=== PATIENT | female | born 1990 | race Caucasian/White ===

== ENCOUNTER 2019-02-07 21:42 | Emergency (ER) | payer OTHER ==
[2019-02-07 22:17] VITALS: BP 146/83
--- NOTE | 2019-02-07 22:20 | ED Physician Documentation ---
Rectal Pain - HISTORIAN Historian: patient - HPI Stated Complaint: rectal pain Chief Complaint: Rectal Pain (Hemorrhoid) Additional Information: Patient is a 28-year-old female who presents to the ER with c/o hemorrhoids. She is 36.5 weeks gestation (Grav 2, Para 1). She is a high risk with a history of Graves and Epilepsy. She has weekly appointments. She has edema to lower extremities and is a little hypertensive. She states that her OB is aware of her swelling. Explained sx's to monitor for (preeclampsia) such as; shortness of breath, chest pain, headache, blurred vision, increasing discomfort seek immediate treatment. There is positive movement. Patient only complaint this evening is hemorrhoidal discomfort. Onset: days ago (A couple of days ago) Timing: gradual onset Context: hemorrhoids- just stopped Severity: moderate - Associated Symptoms Last Bowel Movement: 02/07/19 Description of Stools: denies: dark stools, black Abdominal Pain: none Emesis Description: denies: blood, coffee grounds Description of Rectal Bleed: rectal pain Other Related Symptoms: denies: nausea, vomiting, dizziness, light-headedness - ROS CONST: no problems SKIN/LYMPH: leg swelling, ankle swelling CVS/RESP: none GI/: denies: rectal intercourse, problems urinating EYES/ENT: denies: problems with vision MS: none NEURO/PSYCH: denies: headache, lost feeling - PAST HX Past History: hemorrhoids. denies: GI bleeding Other History: other (graves, epilepsy) Surgeries/Procedures: Immunizations: UTD Allergies/Adverse Reactions: Allergies Allergy/AdvReac Type Severity Reaction Status Date / Time acetaminophen [From Vicodin] Allergy Verified 02/07/19 22:03 hydrocodone bitartrate Allergy Verified 02/07/19 22:03 [From Vicodin] sulfamethoxazole Allergy Verified 02/07/19 22:03 [From Bactrim] trimethoprim [From Bactrim] Allergy Verified 02/07/19 22:03 Home Medications: Ambulatory Orders Medication Instructions Recorded Levothyroxine Sodium 88 mcg PO DAILY u2 09/24/17 Hydroxyzine Pamoate [Vistaril] 25 mg PO 02/07/19 - SOCIAL HX Smoking History: non-smoker Alcohol Use: none Drug Use: none - FAMILY HX Family History: none - VITAL SIGNS Vital Signs: Vital Signs Temp Pulse Resp BP Pulse Ox 96.4 F L 118 H 20 146/83 98 02/07/19 21:58 02/07/19 21:58 02/07/19 21:58 02/07/19 21:58 02/07/19 21:58 Rectal Pain Physical Exam - EXAM General Appearance: mild distress EENT: eye inspection normal, ENT inspection normal, pharynx normal Neck: nml inspection Respiratory: breath sounds normal CVS: reg. rate & rhythm (she states that her heart rate is always over 110 and OB is aware) Abdomen: other () Rectal: external hemorrhoid, thrombosed, ruptured (1 ruptured- 1 still present (small)), pain on exam, unable to examine digitally Skin: color nml, no rash, nml palp. Extremities: normal range of motion, no evidence of injury, edema Neuro/Psych: oriented x3, CN's nml as tested, motor nml, sensation nml, mood/affect nml Discharge Clincal Impression: Thrombosed external hemorrhoid Additional Instructions: Continue to use Preparation H May use a wet pad- ice it and apply tucks-then apply to rectal area NO LIFTING OVER 5 POUNDS No sitting on toilet for long period of time Keep feet elevated Monitor blood pressure closely Follow up with OB this week Any symptoms of chest pain, shortness of breath, headache, or blurred vision- seek immediate attention Comments: FOLLOW UP WITH OB THIS WEEK CHECK BLOOD PRESSURE DAILY Condition: Good Disposition: 01 HOME, SELF-CARE Decision to Admit: NO Decision Time: 22:48
== END 2019-02-07 22:20 | disposition home or self-care (01) ==
LOC: ED 21:42
DX: K64.5 Perianal venous thrombosis (principal); Z33.1 Pregnant state, incidental
CPT/HCPCS: 99281

== ENCOUNTER 2019-06-09 10:45 | Outpatient (CLI) | payer OTHER ==
[2019-03-01 00:40] VITALS: BP 125/76
--- NOTE | 2019-06-09 12:02 | Diagnostic Imaging Report ---
EDGAR CARTAGENA [facility] [address] [facility].[address] [id number] Report Submission Date: Jun 09, 2019 11:29:09 AM CDT Patient Study Name: ADRIEN HSIEH Date: Jun 09, 2019 10:46:04 AM CDT Modality Type: DX Gender: F Description: WRIST 3 VIEWS OR MORE : 89 Institution: [facility] Physician: EDGAR CARTAGENA Left wrist 3 views Clinical history: Trauma No visible fracture, dislocation or bone destruction. No visible radiopaque foreign bodies. Impression: Normal left wrist Electronically signed on Jun 09, 2019 11:29:09 AM CDT by: Luis E MCCLENDON
== END 2019-06-09 10:47 ==
LOC: RAD 10:45
PROVIDERS: ATTEND Nurse Practitioner Family
DX: S63.502A Unspecified sprain of left wrist, initial encounter (principal); X58.XXXA Exposure to other specified factors, initial encounter; Y99.8 Other external cause status
CPT/HCPCS: 73110